=== PATIENT | male | born 1980 | race Caucasian/White ===

== ENCOUNTER 2018-08-17 11:21 | Emergency (ER) | payer OTHER ==
--- NOTE | 2018-08-17 12:10 | ED ---
Extremity Problem HPI - General Chief complaint: Extremity Problem,Nontraumatic Stated complaint: Right Knee Pain Time Seen by Provider: 08/17/18 11:40 Source: patient, RN notes reviewed, old records reviewed Mode of arrival: ambulatory Limitations: no limitations - History of Present Illness Initial comments: This is a 29-year-old male the ER today. This patient presents today for evaluation regarding right knee pain. Patient is having recurrent right knee pain. States symptoms for about a month denies any other known injury.. No trauma. Symptoms are worse in the morning as well as is a [place]. Patient taking Motrin with some help, just concerned that symptoms have persisted for continuous month MD Complaint: extremity pain, joint pain -: month(s) Location: right, knee History of Same: No -: Yes arthralgia Radiation: none Quality: aching Consistency: intermittent Improves with: nothing Worsens with: nothing Associated Symptoms: denies other symptoms - Related Data Home Medications Medication Instructions Recorded Confirmed No Known Home Medications 08/17/18 08/17/18 Allergies Allergy/AdvReac Type Severity Reaction Status Date / Time No Known Allergies Allergy Verified 08/17/18 11:40 Review of Systems ROS Statement: Those systems with pertinent positive or pertinent negative responses have been documented in the HPI. ROS Other: All systems not noted in ROS Statement are negative. Past Medical History Past Medical History: No Reported History History of Any Multi-Drug Resistant Organisms: None Reported Additional Past Surgical History / Comment(s): left leg surgery including skin graft Past Psychological History: No Psychological Hx Reported Smoking Status: Never smoker Past Alcohol Use History: Occasional Past Drug Use History: None Reported General Exam Limitations: no limitations General appearance: alert, in no apparent distress Head exam: Present: atraumatic, normocephalic, normal inspection Eye exam: Present: normal appearance, PERRL, EOMI. Absent: scleral icterus, conjunctival injection, periorbital swelling ENT exam: Present: normal exam, mucous membranes moist Neck exam: Present: normal inspection. Absent: tenderness, meningismus, lymphadenopathy Respiratory exam: Present: normal lung sounds bilaterally. Absent: respiratory distress, wheezes, rales, rhonchi, stridor Cardiovascular Exam: Present: regular rate, normal rhythm, normal heart sounds. Absent: systolic murmur, diastolic murmur, rubs, gallop, clicks GI/Abdominal exam: Present: soft, normal bowel sounds. Absent: distended, tenderness, guarding, rebound, rigid Extremities exam: Present: normal inspection, full ROM, normal capillary refill. Absent: tenderness, pedal edema, joint swelling, calf tenderness Back exam: Present: normal inspection Neurological exam: Present: alert, oriented X3, CN II-XII intact Psychiatric exam: Present: normal affect, normal mood Skin exam: Present: warm, dry, intact, normal color. Absent: rash Course Vital Signs 08/17/18 08/17/18 11:23 13:57 Temperature 98.3 F 97.8 F Pulse Rate 85 71 Respiratory 16 19 Rate Blood Pressure 139/87 120/67 O2 Sat by Pulse 98 99 Oximetry Medical Decision Making - Medical Decision Making 69 male the ER for evaluation of right knee pain. Ultrasound x-ray are negative. Patient will follow-up with orthopedics for possible evaluation of pseudogout versus possible ligamentous injury - Radiology Data Radiology results: report reviewed (X-ray right knee is negative, ultrasound RIGHT LOWER EXTREMITY IS NEGATIVE FOR DVT), image reviewed Disposition Clinical Impression: Right knee pain, Injury of knee, ligament Disposition: HOME SELF-CARE Condition: Good Instructions (If sedation given, give patient instructions): Knee Sprain (ED) Is patient prescribed a controlled substance at d/c from ED?: No Referrals: Den Sandoval DO [Doctor of Osteopathic Medicine] - 1-2 days
--- NOTE | 2018-08-17 12:49 | XR ---
EXAMINATION TYPE: XR knee complete RT DATE OF EXAM: 08/17/2018 CLINICAL HISTORY: Right knee pain for 3 weeks with no known injury TECHNIQUE: Three views of the right knee are obtained. COMPARISON: None. FINDINGS: There is no acute fracture/dislocation evident in right knee. There is subtle questionable chondrocalcinosis of the medial compartment on the oblique view only. The tri-compartment joint spa rachell appear within normal limits. The overlying soft tissue appears unremarkable. IMPRESSION: There is no acute fracture or dislocation in the right knee. Subtle questionable early c hondrocalcinosis of the medial compartment seen on the oblique view only that can be seen in CPPD and other arthropathies.
--- NOTE | 2018-08-17 13:19 | US ---
EXAMINATION TYPE: US venous doppler duplex LE RT DATE OF EXAM: 08/17/2018 12:52 PM COMPARISON: NONE CLINICAL HISTORY: Pain. Right medial knee pain x 2 weeks, swelling noted by EC physician SIDE PERFORMED: TECHNIQUE: The lower extremity deep venous system is examined utilizing real time linear array sonog eugenio with graded compression, doppler sonography and color-flow sonography. VESSELS IMAGED: Common Femoral Vein Deep Femoral Vein Greater Saphenous Vein * Femoral Vein Popliteal Vein Small Saphenous Vein * Proximal Calf Veins (* superficial vessels) Right Leg: Negative for DVT. No fluid is seen at patient's area of pain. IMPRESSION: 1. No diagnostic evidence of DVT as visualized.
[2018-08-17 13:59] VITALS: BP 120/67; PULSE 71; RESP 19; TEMP 97.8
== END 2018-08-17 13:59 | disposition home or self-care (01) ==
LOC: EC 11:21
DX: S89.81XA Other specified injuries of right lower leg, initial encounter (principal)
CPT/HCPCS: 99284